=== PATIENT | male | born 1945 | race Caucasian/White ===

== ENCOUNTER → 2019-04-28 | Outpatient (CLI) | payer OTHER ==
[~2019-04-28] MED LIST: FENTANYL PF 100 MCG/2ML ONE; FLUMAZENIL 0.1 MG/1 ML, 5ML ONE; MIDAZOLAM 1 MG/ML, 5ML ONE; NALOXONE 1 MG/ML, 2ML ONE
== END | disposition home or self-care (01) ==
LOC: RAD 11:37
PROVIDERS: ATTEND Orthopaedic Surgery Orthopaedic Surgery of the Spine
DX: M47.816 Spondylosis without myelopathy or radiculopathy, lumbar region (principal); M51.36 Other intervertebral disc degeneration, lumbar region
CPT/HCPCS: 72148; 99156; 99157; J2250; J3010; J2310

== ENCOUNTER 2020-04-15 18:18 | Emergency (ER) | payer MEDICARE, OTHER ==
[~2020-04-15] VITALS: Ht 200.7 cm; Wt 95.6 kg
--- NOTE | 2020-04-15 18:49 | NUR ---
REPORT TO [facility]
--- NOTE | 2020-04-15 18:59 | NUR ---
MD AT BEDSIDE TO ASSESS PT
--- NOTE | 2020-04-15 19:20 | NUR ---
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 PT ALSO C/O SWELLING IN BILAT LOWER EXTREM BUT DENIES OTHER SYMPTOMS. PT CONNECTED TO ALL MONITORING, VSS, NADN AT BEDSIDE FOR SUPPORT. PIV STARTED LABS DRAWN AWAITING CT AT THIS TIME.
[2020-04-15 19:28] LABS: BASOPHILS # (AUTO) 0.01 x10^3/uL (0-0.1); BASOPHILS % (AUTO) 0 % (0-1); EOSINOPHILS # (AUTO) 0.02 x10^3/uL (0-0.4); EOSINOPHILS % (AUTO) 1 % (1-7); LYMPHOCYTES # (AUTO) 1.61 x10^3/uL (1-3.4); LYMPHOCYTES % (AUTO) 33 % (22-44); MD NO; MEAN CORPUSCULAR HEMOGLOBIN 35.1 pg (27.5-34.5); MEAN CORPUSCULAR HGB CONC 33.2 g/dL (33.2-36.2); MEAN CORPUSCULAR VOLUME 105.7 fL (81-97); MONOCYTES # (AUTO) 0.48 x10^3/uL (0.2-0.8); MONOCYTES % (AUTO) 10 % (2-9); NEUTROPHILS # (AUTO) 2.78 x10^3/uL (1.8-6.8); NEUTROPHILS % (AUTO) 57 % (42-75); PLATELET COUNT 173 x10^3/uL (130-400); RED BLOOD COUNT 3.64 x10^6/uL (4.38-5.82); RED CELL DISTRIBUTION WIDTH 13.4 % (9.4-14.8)
[2020-04-15 19:41] LABS: ALANINE AMINOTRANSFERASE 35 U/L (12-78); ALBUMIN 3.8 g/dL (3.4-5.0); ANION GAP 5 mmol/L (5-15); CALCIUM 8.6 mg/dL (8.5-10.1); CHLORIDE 107 mmol/L (98-107); CREATININE 0.98 mg/dL (0.7-1.3)
[2020-04-15 19:45] LABS: ALKALINE PHOSPHATASE 76 U/L (45-117); TOTAL PROTEIN 6.8 g/dL (6.4-8.2); TROPONIN I < 0.015 ng/mL (0.000-0.045)
[2020-04-15 19:49] LABS: BILIRUBIN,TOTAL 0.4 mg/dL (0.2-1.0)
--- NOTE | 2020-04-15 20:41 | NUR ---
PT RESTING ON GURNEY AT BEDSIDE NO NEEDS AT THIS TIME
--- NOTE | 2020-04-15 21:10 | NUR ---
PT IN CT AT THIS TIME
[2020-04-15] MEDS ORDERED: OMNIPAQUE 350 MG/ML, 100ML BOTTLE ONE (21:14)
[2020-04-15 21:42] VITALS: BP 126/66
--- NOTE | 2020-04-15 22:00 | NUR ---
ERP AT BEDSIDE TO DISCUSS POC AT THIS TIME
== END 2020-04-15 22:40 | disposition home or self-care (01) ==
LOC: ED 19:38
DX: I71.4 Abdominal aortic aneurysm, without rupture (principal); M19.90 Unspecified osteoarthritis, unspecified site; R94.31 Abnormal electrocardiogram [ECG] [EKG]; F17.200 Nicotine dependence, unspecified, uncomplicated; R03.0 Elevated blood-pressure reading, without diagnosis of hypertension
CPT/HCPCS: 36415; 71275; 74177; 80053; 83880; 84484; 85025; 93005; 99285; Q9967

== ENCOUNTER → 2020-07-16 | Outpatient (CLI) | payer MEDICARE | END | disposition home or self-care (01) | LOC: CFH 08:43 | PROVIDERS: ATTEND Surgery | DX: I08.2 Rheumatic disorders of both aortic and tricuspid valves (principal); I71.4 Abdominal aortic aneurysm, without rupture; M17.9 Osteoarthritis of knee, unspecified; G40.109 Localization-related (focal) (partial) symptomatic epilepsy and epileptic syndromes with simple partial seizures, not intractable, without status epilepticus; G62.9 Polyneuropathy, unspecified | CPT/HCPCS: 93306 ==